=== PATIENT | female | born 1985 | race African-American/Black ===

== ENCOUNTER 2020-08-07 05:40 | Inpatient (IN) ==
[~2020-08-07 05:40] MED LIST: LACTATED RINGER'S 1,000 ML IV SCH
[2020-08-07] MEDS ORDERED: ceFAZolin 2000MG 2,000 MG/15 ML SYR IV SCH (06:00)
[2020-08-07] MEDS ORDERED: CITRIC ACID/SODIUM CITRATE 15 ML UDC PO SCH (06:00)
[2020-08-07 06:53] LABS: Basophils # (auto) 0.01 K/uL (0-0.2); Basophils % (auto) 0.2 %; Eosinophils # (auto) 0.03 K/uL (0-0.5); Eosinophils % (auto) 0.6 %; Hematocrit (blood only) 30.4 % (37-47); Immature Granulocytes # (auto) 0.01 K/uL (0.00-0.02); Immature Granulocytes % (auto) 0.2 %; Lymphocytes # (auto) 1.29 K/uL (1.2-3.4); Lymphocytes % (auto) 26.3 %; Mean Corpuscular Hemoglobin 28.3 pg (25-34); Mean Corpuscular Hgb Conc 32.9 g/dL (32-36); Mean Corpuscular Volume 86.1 fL (80-100); Mean Platelet Volume 11.8 fL (7.4-10.4); Monocytes # (auto) 0.35 K/uL (0.11-0.59); Monocytes % (auto) 7.1 %; Neutrophils # (auto) 3.22 K/uL (1.4-6.5); Neutrophils % (auto) 65.6 %; Platelet Count 143 K/uL (130-400); RDW Coefficient of Variation 14.4 % (11.5-14.5); RDW Standard Deviation 44.4 fL (36.4-46.3); Red Blood Count 3.53 M/uL (4.2-5.4); White Blood Count 4.91 K/uL (4.8-10.8)
[2020-08-07] MEDS ORDERED: MoRPHine SULFATE PF 1 MG/ML 10 ML AMP/VIAL ONE (06:53)
[2020-08-07] MEDS ORDERED: fentaNYL citrate 100 MCG/2 ML VIAL ONE ×3 (06:53→09:15)
[2020-08-07] MEDS ORDERED: OXYTOCIN 10 UNITS/ML VIAL ONE (06:53)
--- NOTE | 2020-08-07 07:10 | Anesthesiology Consultation ---
Date of Service August 07, 2020 Assessment & Plan ASA ASA2 Proposed Anesthesia Anesthesia Type: Spinal Risk / Benefits Reviewed With: PT / POA / Parent / Guardian, Accepts Plan and Informed Consent Obtained History Surgery Operation Date: 08/07/20 07:30 Proposed Procedures p Section in LD - Lio Craft MD Height/Weight Height: 5 ft 7 in Weight: 74.389 kg Allergies Allergy/AdvReac Type Severity Reaction Status Date / Time No Known Allergies Allergy Verified 08/02/20 08:58 Medications Home Medications Medication Instructions Recorded Confirmed Last Taken iron,carbonyl-vitamin C [Vitron-C] 1 tab PO HS 08/02/20 08/07/20 08/06/20 23:30 prenat.vits,shahid,uiq-sqfn-rxthg 1 tab PO HS 08/02/20 08/07/20 08/06/20 23:30 [ Vitamin] NPO Date Last Intake of Fluids: 08/06/20 Time Last Intake of Fluids: 23:30 Date Last Intake of Solids: 08/06/20 Time Last Intake of Solids: 19:00 Past Medical History Medical History Anemia Exercise / Class Metabolic Activity II 4-5 Yardwork/Stairs/Walk up hill Past Family History Family History Other No family history of adverse response to anesthesia Past Surgical History Surgical History H/O wisdom tooth extraction History of dilatation and curettage History of gynecologic surgery remove scar tissue after D/C History of myomectomy Past Anesthesia History No Hx of Anesthesia Complications and No Family Hx of Anesthesia Complications History of PONV No Hx of PONV and No Hx of Motion Sickness Social History Smoking Status: Never smoker Do You Dip or Chew Tobacco: No Hx Alcohol Use: No (none since ) Hx Substance Use: No substance use type: does not use Review of Systems denies fever/cough/ colds/ chest pain/ SOB/ HUSSAIN denies HUSSAIN Physical Exam Vital Signs Last Vital Signs Temp 36.8 C 08/07/20 06:17 Pulse 96 H 08/07/20 05:54 Resp 18 08/07/20 06:17 BP 97/60 L 08/07/20 05:54 ENMT Mouth: no TMJ abnormality and no dentition abnormality Thyromental Distance: > or= 3.5 Finger Breadths Mallampati Class: II Neck neck extension not limited Respiratory normal respiratory effort; no respiratory distress Auscultation: lungs clear to auscultation bilaterally Cardiovascular Rate/Rhythm: regular rate and regular rhythm Neurologic moves all extremities Psychiatric Orientation: alert and oriented x 3 Testing Laboratory Results 08/07/20 05:53
[2020-08-07] MEDS ORDERED: PROMETHAZINE HCL 25 MG in SODIUM CHLORIDE 0.9% 50 ML IV PRN ×2 (07:28→09:50)
[2020-08-07] MEDS ORDERED: NALOXONE HCL 0.4 MG/1 ML VIAL/CARP IV PRN (07:28)
[2020-08-07] MEDS ORDERED: ePHEDrine sulfate 50 MG/ML AMP IV PRN (07:28)
[2020-08-07] MEDS ORDERED: LACTATED RINGER'S 500 ML IV PRN (07:28)
[2020-08-07] MEDS ORDERED: MoRPHine SULFATE PF 1 MG/ML 10 ML AMP/VIAL INT SPINAL ONE (07:28)
[2020-08-07] MEDS ORDERED: diphenhydrAMINE 50 MG/ML VIAL IV PRN (07:28)
[2020-08-07] MEDS ORDERED: NALOXONE HCL 0.08 MG in SYRINGE 1.8 ML IV PRN (07:28)
[2020-08-07] MEDS ORDERED: ONDANSETRON INJ 2 MG/ML 2 ML VIAL IV PRN (07:28)
[2020-08-07] MEDS ORDERED: MoRPHine SULFATE 2 MG/ML CARP IV PRN (07:28)
[2020-08-07] MEDS ORDERED: NALOXONE HCL 1 MG in SODIUM CHLORIDE 0.9% 1000ML 1,000 ML IV PRN (07:28)
[2020-08-07] MEDS ORDERED: NO NARCOTICS OR SEDATIVES SCH (07:30)
[2020-08-07] MEDS ORDERED: SODIUM CHLORIDE 0.9% 1000ML 1,000 ML IV SCH (07:30)
[2020-08-07] MEDS ORDERED: DC INTRASPINAL MORPHINE SCH (07:30)
--- NOTE | 2020-08-07 07:41 | History & Physical Bridge Note ---
Date of Service August 07, 2020 History & Physical Bridge Note I have examined the patient, reviewed the History & Physical and in the interval since the performance of the History & Physical I have noted the following changes of clinical significance: no changes noted
[2020-08-07] MEDS ORDERED: ePHEDrine sulfate 50 MG/ML SYR ONE (08:38)
[2020-08-07] MEDS ORDERED: OXYTOCIN 10 UNITS/ML VIAL IM ONE (08:54)
[2020-08-07] MEDS ORDERED: miSOPROStoL 200 MCG TAB ONE (09:17)
[2020-08-07 09:19] LABS: Base Excess Cord Arterial Bld -5.5 mEq/L (-9-1.8); CO2 Cord Arterial Blood 62 mmHg (39.1-73.5); HCO3 Cord Arterial Blood 23 mmol/L (19.7-28.5); PO2 Cord Arterial Blood 19 mmHg (4.1-31.7); pH Cord Arterial Blood 7.19 (7.1-7.38)
[2020-08-07] MEDS ORDERED: miSOPROStoL 200 MCG TAB PR ONE (09:19)
[2020-08-07 09:24] LABS: Base Excess Cord Venous Blood -4.4 mEq/L (-7.7-1.9); Cord Venous Blood HCO3 21 mmol/L (18.4-26.8); Cord Venous Blood PCO2 38 mmHg (30.4-57.2); Cord Venous Blood PO2 29 mmHg (14.1-43.3); Cord Venous Blood pH 7.36 (7.20-7.44)
[2020-08-07 09:26] LABS: Oxygen Sat Cord Arterial Blood < 60.0 % (<60)
[2020-08-07] MEDS ORDERED: HYDROCORTISONE ACETATE 25 MG SUPP PR PRN (09:50)
[2020-08-07] MEDS ORDERED: MAGNESIUM HYDROXIDE SUSP 30 ML UDC PO PRN (09:50)
[2020-08-07] MEDS ORDERED: BENZOCAINE 20% AER SPR 82.5 GM CAN EXT PRN (09:50)
[2020-08-07] MEDS ORDERED: SENNA 8.6 MG TAB PO PRN (09:50)
[2020-08-07] MEDS ORDERED: SUPERCREAM 0.870% 15 GM JAR EXT PRN (09:50)
[2020-08-07] MEDS ORDERED: LACTATED RINGER'S 1,000 ML IV SCH (10:00)
--- NOTE | 2020-08-07 10:06 | Post Operative Brief Note ---
Immediate Post Op Note v1 Date of Surgery August 07, 2020 Pre & Post Diagnosis Operation Date: 08/07/20 07:30 Pre-Op Diagnosis: s/p Myomectomy, C SECTION Post-Op Diagnosis: Same; Delivery of a live female child at 0843 I identified the patient and participated in the time-out.: Yes Procedure Operation Date: 08/07/20 07:30 Actual Procedures p Section in LD - Lio Craft MD Surgeon Lio Craft MD Spray Dyer lashell marquez Estimated Blood Loss 1,500 Findings Consistent with Post-Op Diagnosis Drains Quintanilla Catheter
--- NOTE | 2020-08-07 10:27 | Operative Report (OR) ---
DATE OF OPERATION: 08/07/2020 INDICATION FOR SURGERY: This is a 34-year-old status post myomectomy, at term, scheduled for section. PREOPERATIVE DIAGNOSES: 1. at term. 2. Status post myomectomy. SURGEON: Lio Craft MD. APARTMENT MAINTENANCE SUPERVISOR: Nasrin Adkins. ANESTHESIA: Spinal. ESTIMATED BLOOD LOSS: 1500 mL. URINE OUTPUT: 200 mL. INTRAVENOUS FLUIDS: 2000 mL. FINDINGS: Live infant in cephalic presentation. Weight and Apgars in the pediatric record. Uterus, adnexa appeared grossly normal. COMPLICATIONS: None. DRAINS: Quintanilla catheter. DISPOSITION: Recovery room. PATHOLOGY: Placenta, cord blood and cord gas. DESCRIPTION OF PROCEDURE: The patient was taken to the operating room where she was prepped and draped in normal sterile fashion. Timeout was called. A Pfannenstiel incision was made and carried down to the fascia with a scalpel. Fascia was incised in the midline and extended laterally on both sides with the Echeverria scissors. The rectus abdominus was sharply dissected off the fascia. Peritoneum was identified and entered sharply. Once inside the abdomen, an Noe retractor was placed for retraction. Vesicouterine peritoneum was identified. Lower segment of the uterus was identified as well. Because the infant's head was not in the pelvis, the patient had not labored at all as expected. Incision was made above the vesicouterine peritoneum and extended laterally on both sides using bandage scissors. Infant's head was delivered. Mouth was suctioned, cord was clamped and cut, and the was handed over to the pediatric team. Weight and Apgars are in the pediatric record. Uterus was closed in 2 layers with Vicryl suture. Good hemostasis was obtained. Copious amount of irrigation used to irrigate the abdomen. The patient was extremely uncomfortable during manipulation of the uterus and the bowel. Decision was therefore made not to exteriorize the uterus as I usually do; however, copious amount of irrigation was used to irrigate the abdomen, and the incision site appeared to have good hemostasis. The Noe retractor was removed. The peritoneum was approximated using plain suture. The fascia was closed in a running fashion using Vicryl stitch. SubQ was approximated using plain suture and skin was closed with taj. All instruments were removed from the abdomen and accounted for x2 including sponges, needles and retractors. Baby and mother are doing well in recovery. I attest to the content of the Intraoperative Record and any orders documented therein. Any exception s are noted below.
[2020-08-07] MEDS: OXYTOCIN 20 UNITS in LACTATED RINGER'S 1,000 ML IV SCH ×2 (10:39→18:31)
--- NOTE | 2020-08-07 10:52 | Anesthesiology Progress Note ---
Date of Service August 07, 2020 Anesthesia Post Procedure Vital Signs Vital Signs: Temp Pulse Resp BP Pulse Ox 08/07/20 10:49 81 100 08/07/20 10:44 79 100 08/07/20 10:39 74 100 08/07/20 10:34 69 100 08/07/20 10:29 75 100 08/07/20 10:28 78 90 08/07/20 10:24 71 100 08/07/20 10:19 65 100 08/07/20 10:15 62 103/60 08/07/20 10:14 62 18 100 08/07/20 10:09 64 100 08/07/20 10:04 65 18 106/66 100 08/07/20 09:59 73 96 08/07/20 09:54 62 18 106/62 99 08/07/20 09:49 62 100 08/07/20 09:44 72 18 100 08/07/20 09:39 66 100 08/07/20 09:36 68 94 08/07/20 09:34 36.4 C L 69 16 104/57 L 99 08/07/20 06:17 36.8 C 18 08/07/20 05:54 96 H 97/60 L 08/07/20 05:53 36.8 C 20 Pain Intensity Abdomen: Pain Intensity: 5 Transfer of Care Handoff Completed per policy Notes Mental Status: alert / awake / arousable and participated in evaluation Patient Amnestic to Procedure: Yes Nausea / Vomiting: adequately controlled Pain: adequately controlled Airway Patency, RR, SpO2: stable & adequate BP & HR: stable & adequate Hydration State: stable & adequate Anesthetic Complications: no major complications apparent and Pt Satisfied with anesthetic care
[2020-08-07] MEDS: KETOROLAC 30 MG/ML VIAL IV PRN ×2 (12:07→21:20)
[2020-08-07] MEDS: SIMETHICONE 80 MG CHEW PO SCH ×3 (12:07→21:16)
[2020-08-07 15:01] LABS: Hematocrit (blood only) 27.8 % (37-47); Hemoglobin 9.2 g/dL (12.0-16.0)
[2020-08-07] MEDS: DOCUSATE SODIUM 100 MG CAP PO SCH (21:16)
[2020-08-08] MEDS ORDERED: ONDANSETRON INJ 2 MG/ML 2 ML VIAL IV PRN (01:28)
[2020-08-08] MEDS ORDERED: diphenhydrAMINE 50 MG/ML VIAL IV PRN (01:28)
[2020-08-08] MEDS ORDERED: diphenhydrAMINE Capsule 25 MG CAP PO PRN (01:29)
[2020-08-08] MEDS: IBUPROFEN 600 MG TAB PO PRN ×4 (02:18→20:54)
[2020-08-08] MEDS: oxyCODONE/ACETAMINOPHEN 5mg/325mg TAB PO PRN ×4 (02:19→20:55)
[2020-08-08 07:06] LABS: Basophils # (auto) 0.01 K/uL (0-0.2); Basophils % (auto) 0.1 %; Eosinophils # (auto) 0.01 K/uL (0-0.5); Eosinophils % (auto) 0.1 %; Hematocrit (blood only) 28.9 % (37-47); Hemoglobin 9.5 g/dL (12.0-16.0); Immature Granulocytes # (auto) 0.03 K/uL (0.00-0.02); Immature Granulocytes % (auto) 0.2 %; Lymphocytes # (auto) 0.81 K/uL (1.2-3.4); Lymphocytes % (auto) 6.6 %; Mean Corpuscular Hemoglobin 28.3 pg (25-34); Mean Corpuscular Hgb Conc 32.9 g/dL (32-36); Mean Platelet Volume 11.3 fL (7.4-10.4); Neutrophils # (auto) 10.28 K/uL (1.4-6.5); Platelet Count 154 K/uL (130-400); RDW Coefficient of Variation 14.1 % (11.5-14.5); RDW Standard Deviation 43.3 fL (36.4-46.3); Red Blood Count 3.36 M/uL (4.2-5.4); White Blood Count 12.24 K/uL (4.8-10.8)
[2020-08-08] MEDS: FERROUS SULFATE 325 MG TAB PO SCH (08:55)
[2020-08-08] MEDS: SIMETHICONE 80 MG CHEW PO SCH ×4 (08:55→20:56)
[2020-08-08] MEDS: DOCUSATE SODIUM 100 MG CAP PO SCH ×2 (08:55→20:56)
[2020-08-08] MEDS: PRENATAL VITAMIN 1 TAB PO SCH (08:55)
[2020-08-08] MEDS ORDERED: DIPHTHERIA/TETANUS/PERTUSSIS 0.5 ML SYR/VIAL IM ONE (09:00)
--- NOTE | 2020-08-08 09:11 | Anesthesiology Progress Note ---
Date of Service August 08, 2020 Anesthesia Post Procedure Vital Signs Vital Signs: Temp Pulse Pulse Resp BP BP Pulse Ox 08/08/20 04:00 36.7 C 70 18 117/72 99 08/08/20 02:00 18 99 08/08/20 00:30 18 98 08/07/20 23:30 36.7 C 77 18 111/70 99 08/07/20 22:00 18 99 08/07/20 20:30 37.0 C 78 18 106/67 08/07/20 19:30 18 96 08/07/20 18:15 18 100 08/07/20 17:15 18 100 08/07/20 16:15 18 100 08/07/20 15:50 36.7 C 82 18 106/63 08/07/20 15:15 18 100 08/07/20 14:15 78 18 103/66 98 08/07/20 13:15 75 18 113/51 L 100 08/07/20 12:15 36.7 C 72 18 105/65 100 08/07/20 11:37 75 109/51 L 08/07/20 11:34 78 18 100 08/07/20 11:33 72 92 08/07/20 11:29 70 100 08/07/20 11:24 72 91 08/07/20 11:19 71 100 08/07/20 11:15 75 149/67 H 08/07/20 11:14 73 100 08/07/20 11:09 74 100 08/07/20 11:05 73 115/54 L 08/07/20 11:04 72 18 100 08/07/20 11:03 68 90 08/07/20 10:59 73 100 08/07/20 10:56 80 91 08/07/20 10:54 74 100 08/07/20 10:49 81 100 08/07/20 10:44 79 100 08/07/20 10:39 74 100 08/07/20 10:34 69 18 100 08/07/20 10:29 75 100 08/07/20 10:28 78 90 08/07/20 10:24 71 18 100 08/07/20 10:19 65 100 08/07/20 10:15 62 103/60 08/07/20 10:14 62 18 100 08/07/20 10:09 64 100 08/07/20 10:04 65 18 106/66 100 08/07/20 09:59 73 96 08/07/20 09:54 62 18 106/62 99 08/07/20 09:49 62 100 08/07/20 09:44 72 18 100 08/07/20 09:39 66 100 08/07/20 09:36 68 94 08/07/20 09:34 36.4 C L 69 16 104/57 L 99 Pain Intensity Abdomen: Pain Intensity: 3 Transfer of Care Handoff Completed per policy Notes Mental Status: alert / awake / arousable and participated in evaluation Nausea / Vomiting: adequately controlled Pain: adequately controlled Airway Patency, RR, SpO2: stable & adequate BP & HR: stable & adequate Hydration State: stable & adequate Neuraxial Anesthesia: was administered and sensory block resolved Anesthetic Complications: no major complications apparent and Pt Satisfied with anesthetic care Notes: Patient denies headache this morning. Has been up walking without weakness or residual numbness. Patient encouraged to contact anesthesia for any concerns or new headache
--- NOTE | 2020-08-08 09:43 | Obstetrical Progress Note ---
Date of Service August 08, 2020 Assessment & Plan Admission and Anticipated Discharge Date Admission Date: August 07, 2020 Physical Exam Physical Exam: abdomen soft and non tender incision is clean and dry passing flatus no calf tenderness ambulating well vaginal bleeding scant hgb 9.4 Results & Data ([facility]) Vital Signs (Past 12 Hours) Vital Signs Temp Pulse Resp BP Pulse Ox 08/08/20 04:00 36.7 C 70 18 117/72 99 08/08/20 02:00 18 99 08/08/20 00:30 18 98 08/07/20 23:30 36.7 C 77 18 111/70 99 08/07/20 22:00 18 99
[2020-08-08] MEDS ORDERED: bisacodyL 5 MG TABEC PO SCH (20:00)
[2020-08-09] MEDS: IBUPROFEN 600 MG TAB PO PRN ×5 (01:31→23:23)
[2020-08-09] MEDS: oxyCODONE/ACETAMINOPHEN 5mg/325mg TAB PO PRN ×5 (01:31→23:22)
[2020-08-09 07:29] LABS: Hematocrit (blood only) 23.2 % (37-47); Hemoglobin 7.4 g/dL (12.0-16.0)
[2020-08-09] MEDS: SIMETHICONE 80 MG CHEW PO SCH ×4 (08:30→21:14)
[2020-08-09] MEDS: PRENATAL VITAMIN 1 TAB PO SCH (08:30)
[2020-08-09] MEDS: FERROUS SULFATE 325 MG TAB PO SCH (08:30)
[2020-08-09] MEDS: DOCUSATE SODIUM 100 MG CAP PO SCH ×2 (08:30→21:14)
[2020-08-09] MEDS ORDERED: bisacodyL 10 MG SUPP PR PRN (09:50)
--- NOTE | 2020-08-09 10:40 | Obstetrical Progress Note ---
Date of Service August 09, 2020 Assessment & Plan (1) delivery delivered: POD #2 pt doing well No complaints HGB 7.4 - repeat at noon Asymptomatic , on Iron Anticipate disch AM Subjective Ambulation: ambulating normally Voiding: no voiding problems Passing Gas:: Yes Diet Tolerance:: clear liquids Lochia:: Small Feeding Type:: breast feeding Review of Systems All systems reviewed & are unremarkable except as noted in HPI & below Physical Exam Constitutional WD/WN, vitals as above well developed and well nourished Eyes PERRL, conjunctivae normal, anicteric sclerae ENMT external ear and nose normal, oropharynx normal Neck trachea midline, no thyromegaly Respiratory normal respiratory effort, lungs clear to auscultation Cardiovascular RRR, no murmur, no edema Chest (Breasts) normal inspection/palpation of breasts Gastrointestinal (Abdomen) normal bowel sounds, soft, nontender, no hepatosplenomegaly Musculoskeletal no cyanosis or clubbing, extremities motor strength 5/5 Skin no rashes, warm and dry + incision (Clean,dry and intact) Neurologic patellar DTR's 2+ bilat, sensation intact Psychiatric A+Ox3, euthymic affect Genitourinary normal external appearance Lymphatic no cervical or axillary lymphadenopathy Results & Data ([facility]) Vital Signs (Past 12 Hours) Vital Signs Temp Pulse Resp BP Pulse Ox 08/09/20 08:00 36.6 C 83 18 101/67 99 08/09/20 00:35 36.5 C 73 16 111/60 97
[2020-08-09 13:08] LABS: Hematocrit (blood only) 24.5 % (37-47)
[2020-08-09] MEDS ORDERED: Nursing to Pharmacy Communication SCH (22:00)
[2020-08-10] MEDS: oxyCODONE/ACETAMINOPHEN 5mg/325mg TAB PO PRN ×2 (00:23→08:57)
--- NOTE | 2020-08-10 07:58 | Obstetrical Progress Note ---
Date of Service August 10, 2020 Assessment & Plan Admission and Anticipated Discharge Date Admission Date: August 07, 2020 Subjective Patient is seen and examined. She feels well, no complaints. Desires d/c Pain is under control with oral meds. Ambulating without dizziness. Voiding without difficulty Tolerating regular diet with out N&V Flatus + BM + Bleeding is minimal No fever/ chills/ CP/ SOB/ N&V/ Leg pain Breast feeding without problems Vital Signs Temp Pulse Resp BP Pulse Ox 08/10/20 00:15 36.4 C L 80 16 110/70 08/09/20 16:00 36.4 C L 84 18 97/64 L 99 08/09/20 08:00 36.6 C 83 18 101/67 99 Lab Results 08/07/20 08/07/20 08/07/20 Range/Units 05:53 05:53 08:43 WBC 4.91 (4.8-10.8) K/uL RBC 3.53 L (4.2-5.4) M/uL Hgb 10.0 L (12.0-16.0) g/dL Hct 30.4 L (37-47) % MCV 86.1 (80-100) fL MCH 28.3 (25-34) pg MCHC 32.9 (32-36) g/dL RDW Std Deviation 44.4 (36.4-46.3) fL RDW Coeff of Belinda 14.4 (11.5-14.5) % Plt Count 143 (130-400) K/uL MPV 11.8 H (7.4-10.4) fL Immature Gran % (Auto) 0.2 % Neut % (Auto) 65.6 % Lymph % (Auto) 26.3 % [place] % (Auto) 7.1 % Eos % (Auto) 0.6 % Baso % (Auto) 0.2 % Neut # (Auto) 3.22 (1.4-6.5) K/uL Lymph # (Auto) 1.29 (1.2-3.4) K/uL [place] # (Auto) 0.35 (0.11-0.59) K/uL Eos # (Auto) 0.03 (0-0.5) K/uL Baso # (Auto) 0.01 (0-0.2) K/uL Immature Gran # (Auto) 0.01 (0.00-0.02) K/uL Cord ABG pH 7.19 (7.1-7.38) Cord ABG pCO2 62 (39.1-73.5) mmHg Cord ABG pO2 19 (4.1-31.7) mmHg Cord ABG HCO3 23 (19.7-28.5) mmol/L Cord ABG Base Excess -5.5 (-9-1.8) mEq/L Cord ABG O2 Sat < 60.0 (<60) % Cord VBG pH (7.20-7.44) Cord VBG pCO2 (30.4-57.2) mmHg Cord VBG pO2 (14.1-43.3) mmHg Cord VBG HCO3 (18.4-26.8) mmol/L Cord VBG Base Excess (-7.7-1.9) mEq/L Cord VBG O2 Sat (<68) % Barometric Pressure 730.5 mm/Hg Blood Gas Comments SANTANA Blood Type O Positive Antibody Screen NEGATIVE 08/07/20 08/07/20 08/08/20 Range/Units 08:43 14:48 06:29 WBC 12.24 H (4.8-10.8) K/uL RBC 3.36 L (4.2-5.4) M/uL Hgb 9.2 L 9.5 L (12.0-16.0) g/dL Hct 27.8 L 28.9 L (37-47) % MCV 86.0 (80-100) fL MCH 28.3 (25-34) pg MCHC 32.9 (32-36) g/dL RDW Std Deviation 43.3 (36.4-46.3) fL RDW Coeff of Belinda 14.1 (11.5-14.5) % Plt Count 154 (130-400) K/uL MPV 11.3 H (7.4-10.4) fL Immature Gran % (Auto) 0.2 % Neut % (Auto) 84.0 % Lymph % (Auto) 6.6 % [place] % (Auto) 9.0 % Eos % (Auto) 0.1 % Baso % (Auto) 0.1 % Neut # (Auto) 10.28 H (1.4-6.5) K/uL Lymph # (Auto) 0.81 L (1.2-3.4) K/uL [place] # (Auto) 1.10 H (0.11-0.59) K/uL Eos # (Auto) 0.01 (0-0.5) K/uL Baso # (Auto) 0.01 (0-0.2) K/uL Immature Gran # (Auto) 0.03 H (0.00-0.02) K/uL Cord ABG pH (7.1-7.38) Cord ABG pCO2 (39.1-73.5) mmHg Cord ABG pO2 (4.1-31.7) mmHg Cord ABG HCO3 (19.7-28.5) mmol/L Cord ABG Base Excess (-9-1.8) mEq/L Cord ABG O2 Sat (<60) % Cord VBG pH 7.36 (7.20-7.44) Cord VBG pCO2 38 (30.4-57.2) mmHg Cord VBG pO2 29 (14.1-43.3) mmHg Cord VBG HCO3 21 (18.4-26.8) mmol/L Cord VBG Base Excess -4.4 (-7.7-1.9) mEq/L Cord VBG O2 Sat 63.0 (<68) % Barometric Pressure 730.6 mm/Hg Blood Gas Comments SANTANA Blood Type Antibody Screen 08/09/20 08/09/20 Range/Units 06:50 12:46 WBC (4.8-10.8) K/uL RBC (4.2-5.4) M/uL Hgb 7.4 L 8.0 L (12.0-16.0) g/dL Hct 23.2 L 24.5 L (37-47) % MCV (80-100) fL MCH (25-34) pg MCHC (32-36) g/dL RDW Std Deviation (36.4-46.3) fL RDW Coeff of Belinda (11.5-14.5) % Plt Count (130-400) K/uL MPV (7.4-10.4) fL Immature Gran % (Auto) % Neut % (Auto) % Lymph % (Auto) % [place] % (Auto) % Eos % (Auto) % Baso % (Auto) % Neut # (Auto) (1.4-6.5) K/uL Lymph # (Auto) (1.2-3.4) K/uL [place] # (Auto) (0.11-0.59) K/uL Eos # (Auto) (0-0.5) K/uL Baso # (Auto) (0-0.2) K/uL Immature Gran # (Auto) (0.00-0.02) K/uL Cord ABG pH (7.1-7.38) Cord ABG pCO2 (39.1-73.5) mmHg Cord ABG pO2 (4.1-31.7) mmHg Cord ABG HCO3 (19.7-28.5) mmol/L Cord ABG Base Excess (-9-1.8) mEq/L Cord ABG O2 Sat (<60) % Cord VBG pH (7.20-7.44) Cord VBG pCO2 (30.4-57.2) mmHg Cord VBG pO2 (14.1-43.3) mmHg Cord VBG HCO3 (18.4-26.8) mmol/L Cord VBG Base Excess (-7.7-1.9) mEq/L Cord VBG O2 Sat (<68) % Barometric Pressure mm/Hg Blood Gas Comments Blood Type Antibody Screen PE: General: Alert, orientedx3, NAD CVS: S1S2 RRR Lungs; CTAB Abd: soft, NT, ND, BS+, fundus firm, below Umbilicus Incision: Clean, dry, intact Perineum intact, Lochia rubra minimal Ext; NT, no edema AP: 34 yo s/p C Section, pod# 2 VSS Afebrile doing well Continue routine postop care Encourage ambulation, PO intake All questions were answered Discussed when to call D/C home , f/u in office Results & Data ([facility]) Vital Signs (Past 12 Hours) Vital Signs Temp Pulse Resp BP 08/10/20 00:15 36.4 C L 80 16 110/70
[2020-08-10 08:21] LABS: Eosinophils # (auto) 0.08 K/uL (0-0.5); Eosinophils % (auto) 1.3 %; Hematocrit (blood only) 24.6 % (37-47); Hemoglobin 8.1 g/dL (12.0-16.0); Immature Granulocytes # (auto) 0.01 K/uL (0.00-0.02); Immature Granulocytes % (auto) 0.2 %; Lymphocytes # (auto) 0.91 K/uL (1.2-3.4); Lymphocytes % (auto) 15.2 %; Mean Corpuscular Hemoglobin 28.3 pg (25-34); Mean Corpuscular Hgb Conc 32.9 g/dL (32-36); Mean Platelet Volume 10.8 fL (7.4-10.4); Monocytes # (auto) 0.45 K/uL (0.11-0.59); Monocytes % (auto) 7.5 %; Neutrophils # (auto) 4.53 K/uL (1.4-6.5); Neutrophils % (auto) 75.8 %; Platelet Count 157 K/uL (130-400); RDW Coefficient of Variation 14.5 % (11.5-14.5); RDW Standard Deviation 44.9 fL (36.4-46.3); Red Blood Count 2.86 M/uL (4.2-5.4); White Blood Count 5.98 K/uL (4.8-10.8)
[2020-08-10] MEDS: SIMETHICONE 80 MG CHEW PO SCH (08:57)
[2020-08-10] MEDS: FERROUS SULFATE 325 MG TAB PO SCH (08:57)
[2020-08-10] MEDS: PRENATAL VITAMIN 1 TAB PO SCH (08:57)
[2020-08-10] MEDS: DOCUSATE SODIUM 100 MG CAP PO SCH (08:57)
[2020-08-10] MEDS: IBUPROFEN 600 MG TAB PO PRN (08:58)
== END 2020-08-10 13:25 | disposition home or self-care (01) | DRG 788 ==
LOC: 4S1 05:40 → EDSTATUS 07:30 → 4S2 11:52

== ENCOUNTER 2022-07-08 07:08 | Inpatient (IN) ==
--- NOTE | 2022-07-01 10:07 | Anesthesiology Consultation ---
Date of Service July 01, 2022 Assessment & Plan (1) Encounter for pre-operative examination: - COVID screening: Per assessment on 07/01: No known COVID-19 positive contacts or current COVID-19 related symptoms. Travel screen negative. Patient vaccinated. At surgeon discretion if preop Covid testing being done. - Hx anesthesia issue: Pt reports "not being completely numb during last c- section.. very painful" > Primary (08/07/20): SAB at L3-4 at [facility] Chart Review Chart Review: order entry administrator initiated History Surgery Operation Date: 07/08/22 08:50 Proposed Procedures p Section in LD - Antonio Johnston MD Height/Weight Height: 5 ft 7 in Weight: 78.018 kg Allergies Allergy/AdvReac Type Severity Reaction Status Date / Time No Known Allergies Allergy Verified 07/01/22 09:33 Medications Home Medications Medication Instructions Recorded Confirmed Last Taken prenat.vits,shahid,[id number]-gmfw-[id number] 1 tab PO HS 08/02/20 07/01/22 08/06/20 23:30 Past Medical History Medical History (Updated 07/01/22 @ 10:04 by Radha Leone) Anemia Past Family History Family History Other No family history of adverse response to anesthesia Past Surgical History Surgical History (Updated 07/01/22 @ 10:05 by Radha Leone) H/O wisdom tooth extraction History of anesthesia reaction Pt reports "not being completely numb during last .. very painful" History of History of dilatation and curettage History of gynecologic surgery remove scar tissue after D/C History of myomectomy Social History Smoking Status: Never smoker Do You Dip or Chew Tobacco: No Hx Alcohol Use: No (none since ) Hx Substance Use: No substance use type: does not use
--- NOTE | 2022-07-08 07:25 | History & Physical Bridge Note ---
Date of Service July 08, 2022 History & Physical Bridge Note I have examined the patient, reviewed the History & Physical and in the interval since the performance of the History & Physical I have noted the following changes of clinical significance: no changes noted
[2022-07-08] MEDS: LACTATED RINGER'S 1,000 ML IV PRN ×2 (07:50→10:04)
[2022-07-08] MEDS ORDERED: ceFAZolin 2000MG 2,000 MG/15 ML SYR IV STA (07:52)
[2022-07-08] MEDS ORDERED: LIDOCAINE 1% LOCAL 20 ML VIAL INFIL PRN (07:52)
[2022-07-08] MEDS ORDERED: OXYTOCIN 30 UNITS/500 ML BAG IV PRN (07:52)
[2022-07-08 08:29] LABS: Hematocrit (blood only) 29.3 % (34.1-44.9); Hemoglobin 9.8 g/dl (12.0-16.0); Mean Corpuscular Hemoglobin 27.8 pg (25.0-34.0); Mean Corpuscular Hgb Conc 33.4 g/dL (32.0-36.0); Platelet Count 132 K/uL (130-400); RDW Coefficient of Variation 16.1 % (11.5-14.5); RDW Standard Deviation 48.7 fL (36.4-46.3); Red Blood Count 3.53 M/uL (3.93-5.22); White Blood Count 4.75 K/ul (4.8-10.8)
[2022-07-08] MEDS ORDERED: SODIUM CHLORIDE 0.9% 250 ML IV PRN (08:37)
[2022-07-08] MEDS ORDERED: CITRIC ACID/SODIUM CITRATE 15 ML UDC PO SCH (08:45)
[2022-07-08] MEDS ORDERED: OXYTOCIN 10 UNITS/ML VIAL ONE (10:05)
[2022-07-08] MEDS ORDERED: MoRPHine SULFATE PF 1 MG/ML 10 ML AMP/VIAL ONE (10:08)
[2022-07-08] MEDS ORDERED: HYDROmorphone INJ 0.5 MG/0.5 ML SYR IV PRN (10:14)
[2022-07-08] MEDS ORDERED: NALBUPHINE HCL INJ 10 MG/ML AMP IV PRN (10:14)
[2022-07-08] MEDS ORDERED: ATROPINE SULFATE 0.1 MG/ML 10ML SYR IV PRN (10:14)
[2022-07-08] MEDS ORDERED: NALOXONE HCL 0.08 MG in SYRINGE 1.8 ML IV PRN (10:14)
[2022-07-08] MEDS ORDERED: MoRPHine SULFATE 2 MG/ML CARP IV PRN (10:14)
[2022-07-08] MEDS ORDERED: LACTATED RINGER'S 500 ML IV PRN (10:14)
[2022-07-08] MEDS ORDERED: MEPERIDINE HCL 25 MG/ML CARP/VIAL IV PRN (10:14)
[2022-07-08] MEDS ORDERED: NALOXONE HCL 0.4 MG/1 ML VIAL/CARP IV PRN (10:14)
[2022-07-08] MEDS ORDERED: diphenhydrAMINE 50 MG/ML VIAL IV PRN (10:14)
[2022-07-08] MEDS ORDERED: MoRPHine SULFATE PF 1 MG/ML 10 ML AMP/VIAL INT SPINAL ONE (10:14)
[2022-07-08] MEDS ORDERED: NALOXONE HCL 1 MG in SODIUM CHLORIDE 0.9% 1000ML 1,000 ML IV PRN (10:14)
[2022-07-08] MEDS ORDERED: ePHEDrine sulfate 50 MG/ML AMP IV PRN ×2 (10:14)
[2022-07-08] MEDS ORDERED: SODIUM CHLORIDE 0.9% 1000ML 1,000 ML IV SCH (10:15)
[2022-07-08] MEDS ORDERED: DC INTRASPINAL MORPHINE SCH (10:15)
[2022-07-08] MEDS ORDERED: NO NARCOTICS OR SEDATIVES SCH (10:15)
[2022-07-08] MEDS ORDERED: ePHEDrine sulfate 50 MG/ML SYR ONE (10:57)
[2022-07-08] MEDS ORDERED: OXYTOCIN 10 UNITS/ML 10ML VIAL ONE (10:58)
[2022-07-08] MEDS ORDERED: PHENYLEPHRINE 100MCG/ML 5ML SYR ONE (10:58)
[2022-07-08] MEDS ORDERED: LACTATED RINGER'S 1,000 ML IV SCH (11:45)
[2022-07-08] MEDS ORDERED: HYDROCORTISONE ACETATE 25 MG SUPP PR PRN (11:45)
[2022-07-08] MEDS ORDERED: BENZOCAINE 20% AER SPR 82.5 GM CAN EXT PRN (11:45)
[2022-07-08] MEDS ORDERED: SENNA 8.6 MG TAB PO PRN (11:45)
[2022-07-08] MEDS ORDERED: diphenhydrAMINE Capsule 25 MG CAP PO PRN (11:45)
[2022-07-08] MEDS ORDERED: oxyCODONE/ACETAMINOPHEN 5mg/325mg TAB PO PRN (11:45)
[2022-07-08] MEDS ORDERED: PROMETHAZINE HCL 25 MG in SODIUM CHLORIDE 0.9% 50 ML IV PRN (11:45)
[2022-07-08] MEDS ORDERED: DIPHTHERIA/TETANUS/PERTUSSIS 0.5 ML SYR/VIAL IM ONE (11:45)
[2022-07-08] MEDS ORDERED: MAGNESIUM HYDROXIDE SUSP 30 ML UDC PO PRN (11:45)
--- NOTE | 2022-07-08 11:49 | Post Operative Brief Note ---
Immediate Post Op Note v1 Date of Surgery July 08, 2022 Pre & Post Diagnosis Operation Date: 07/08/22 08:50 Pre-Op Diagnosis: History of myomectomy/repeat c/section Post-Op Diagnosis: Same;Delivery of a live female child at 1039 I identified the patient and participated in the time-out.: Yes Procedure Operation Date: 07/08/22 08:50 Actual Procedures p Section in LD - Antonio Johnston MD Surgeon Antonio Johnston MD Patient Access Specialist Dr. Rocha Estimated Blood Loss 500 Findings Consistent with Post-Op Diagnosis live female Apgars 9/9 weight 6-8 nuchal cord x1 Fluids LR 800 ml. Specimens placenta Drains Quintanilla Catheter Anesthesia Type Spinal Complications none Disposition Accompanied Patient To Recovery: Yes Disposition: L&D Overlapping Procedure I was present for: the critical portions of procedure. I was immediately available: during the entire case. Back up surgeon: was not required during procedure.
--- NOTE | 2022-07-08 12:53 | Operative Report (OR) ---
DATE OF SURGERY: 07/08/2022. POSTOPERATIVE DIAGNOSES: Term elective repeat section, prior myomectomy. POSTOPERATIVE DIAGNOSES: Term elective repeat section, prior myomectomy. PROCEDURE: Repeat section, low segment transverse. SURGEON: Antonio Johnston MD CONTROL ROOM TENDER: Dr. Rocha. ANESTHESIA: Spinal. ESTIMATED BLOOD LOSS: 600 mL. FINDINGS: Live female, Apgars 9 and 9, weight 6 pounds 8 ounces with nuchal cord x1. TOTAL FLUIDS: 800 mL. URINE OUTPUT: 200 mL. CLINICAL HISTORY: The patient is a 36-year-old female, para 2-0-3-2, at 37 weeks and 3 days, admitte d for a repeat section due to prior myomectomy. Timeout was called prior to the start of the procedure and Ancef 2 grams were given preop. DESCRIPTION OF PROCEDURE: Under satisfactory spinal anesthesia, the patient was prepped and draped i n the usual sterile fashion. Timeout was called. Antibiotics given. A low Pfannenstiel incision th rough a prior scar was then made, carrying the incision down into the abdominal cavity in successive layers. Upon entering into the peritoneal cavity, the uterus was noted to be enlarged due to a fibro id on the right. The lower uterine segment was thinned out. A low transverse incision over the lowe r uterine segment was made. The incision was widened in the AP diameter with blunt dissection. The amniotic sac was nicked, was clear. Infant was then delivered with the aid of fundal pressure. Ther e was a nuchal cord x1 reduced at time of delivery of the head. Delayed cord clamping. Delivery of a live female, Apgars were 9 and 9, weight 6 pounds 8 ounces. Cord blood was obtained. Marcos paz delivered spontaneously and intact. Uterus was then exteriorized. Ring forceps were then placed on both angles in the inferior margin. Another ring was used to dilate the cervix. Uterus was closed in double layer closure of 0 Vicryl kendall ture in a continuous interlocking fashion. Several cemxde-ry-dxzxf sutures were used to close some b leeding on the lower uterine segment. The initial sponge, needle, and instrument count were found to be correct. Both tubes and ovaries were found to be within normal limits. The uterus was then plac ed back into the normal anatomical position. Both gutters were inspected and cleaned. The lower [place] rine segment was inspected. No active bleeding was noted. The fascia was then reapproximated with a 0 Vicryl suture in a continuous fashion. Subcuticular space was irrigated. The skin was then reapp roximated with 4-0 Monocryl suture. Steri-Strips were then applied along with a dressing. The final sponge, needle, and instrument count were found to be correct. EBL 600 mL. The patient was placed supine on a stretcher and taken to recovery room in stable condition. Job ID: [id number]
[2022-07-08] MEDS: SIMETHICONE 80 MG CHEW PO SCH ×3 (14:56→21:38)
--- NOTE | 2022-07-08 15:06 | Anesthesiology Progress Note ---
Date of Service July 08, 2022 Anesthesia Post Procedure Vital Signs Vital Signs: Temp Pulse Resp BP Pulse Ox 07/08/22 13:36 18 07/08/22 13:06 18 07/08/22 12:36 18 07/08/22 12:16 18 07/08/22 12:06 18 07/08/22 11:56 18 07/08/22 11:46 18 07/08/22 11:36 36.4 C L 18 07/08/22 14:26 62 100 07/08/22 14:21 60 99 07/08/22 14:16 60 100 07/08/22 14:11 64 100 07/08/22 14:06 100 07/08/22 14:06 63 07/08/22 14:01 100 07/08/22 14:01 69 07/08/22 13:56 100 07/08/22 13:56 69 07/08/22 13:51 100 07/08/22 13:51 62 07/08/22 13:46 90 07/08/22 13:46 69 07/08/22 13:41 100 07/08/22 13:41 62 07/08/22 13:39 89 L 07/08/22 13:39 65 07/08/22 13:36 100 07/08/22 13:36 62 07/08/22 13:37 61 07/08/22 13:37 121/59 L 07/08/22 13:34 90 07/08/22 13:34 71 07/08/22 13:31 99 07/08/22 13:31 70 07/08/22 13:27 63 07/08/22 13:27 111/66 07/08/22 13:26 100 07/08/22 13:26 65 07/08/22 13:21 99 07/08/22 13:21 63 07/08/22 13:16 100 07/08/22 13:16 58 L 07/08/22 13:17 59 L 07/08/22 13:17 129/71 07/08/22 13:13 91 07/08/22 13:13 60 07/08/22 13:11 100 07/08/22 13:11 61 07/08/22 13:08 56 L 07/08/22 13:08 115/56 L 07/08/22 13:06 100 07/08/22 13:06 63 07/08/22 13:01 100 07/08/22 13:01 66 07/08/22 12:59 90 07/08/22 12:59 61 07/08/22 12:56 100 07/08/22 12:56 58 L 07/08/22 12:57 57 L 07/08/22 12:57 120/64 07/08/22 12:51 98 07/08/22 12:51 62 07/08/22 12:50 94 07/08/22 12:50 58 L 07/08/22 12:47 57 L 07/08/22 12:47 128/67 07/08/22 12:46 99 07/08/22 12:46 57 L 07/08/22 12:41 100 07/08/22 12:41 58 L 07/08/22 12:36 97 07/08/22 12:36 55 L 07/08/22 12:37 61 07/08/22 12:37 119/83 07/08/22 12:34 91 07/08/22 12:34 58 L 07/08/22 12:31 99 07/08/22 12:31 58 L 07/08/22 12:28 90 07/08/22 12:28 57 L 07/08/22 12:26 100 07/08/22 12:26 57 L 07/08/22 12:27 57 L 07/08/22 12:27 129/69 07/08/22 12:21 99 07/08/22 12:21 60 07/08/22 12:21 106/65 07/08/22 12:19 92 07/08/22 12:19 60 07/08/22 12:16 100 07/08/22 12:16 61 07/08/22 12:11 100 07/08/22 12:11 61 07/08/22 12:06 99 07/08/22 12:06 60 07/08/22 12:07 56 L 07/08/22 12:07 130/76 07/08/22 12:01 100 07/08/22 12:01 59 L 07/08/22 11:57 66 07/08/22 11:57 115/55 L 07/08/22 11:56 94 07/08/22 11:57 93 07/08/22 11:56 64 07/08/22 11:57 66 07/08/22 11:51 99 07/08/22 11:51 62 07/08/22 11:47 60 07/08/22 11:47 125/66 07/08/22 11:46 100 07/08/22 11:46 59 L 07/08/22 11:41 99 07/08/22 11:41 58 L 07/08/22 11:41 93 07/08/22 11:41 64 07/08/22 11:36 99 07/08/22 11:36 61 07/08/22 11:36 62 07/08/22 11:36 126/65 07/08/22 10:04 92 07/08/22 10:04 125 H 07/08/22 09:00 18 07/08/22 09:00 18 07/08/22 07:18 18 07/08/22 07:18 36.8 C 18 07/08/22 07:20 75 113/72 Pain Intensity Abdomen: Pain Intensity: 3 Transfer of Care Handoff Completed per policy Notes Mental Status: alert / awake / arousable and participated in evaluation Nausea / Vomiting: adequately controlled Pain: adequately controlled Airway Patency, RR, SpO2: stable & adequate BP & HR: stable & adequate Hydration State: stable & adequate Neuraxial Anesthesia: was administered and sensory block is resolving Anesthetic Complications: no major complications apparent and Pt Satisfied with anesthetic care
[2022-07-08] MEDS: KETOROLAC 30 MG/ML VIAL IV PRN (15:27)
[2022-07-08] MEDS ORDERED: NON-FORMULARY MEDICATION (Prenat.Vits,Cal,Min-Iron-Folic Tablet) PO SCH (21:00)
[2022-07-08] MEDS: DOCUSATE SODIUM 100 MG CAP PO SCH (21:38)
[2022-07-09] MEDS: KETOROLAC 30 MG/ML VIAL IV PRN (01:35)
[2022-07-09] MEDS ORDERED: KETOROLAC 30 MG/ML VIAL IV PRN (04:15)
[2022-07-09] MEDS ORDERED: diphenhydrAMINE 50 MG/ML VIAL IV PRN (04:15)
[2022-07-09] MEDS ORDERED: ONDANSETRON INJ 2 MG/ML 2 ML VIAL IV PRN (04:15)
--- NOTE | 2022-07-09 07:51 | Obstetrical Progress Note ---
Date of Service July 09, 2022 Assessment & Plan Admission and Anticipated Discharge Date Admission Date: July 08, 2022 Subjective Patient is seen and examined. She feels well, no complaints. Pain is under control with meds. Ambulated without dizziness Has not Voided yet Tolerating regular diet with out N&V Flatus + BM neg Bleeding is minimal No fever/ chills/ CP/ SOB/ N&V/ Leg pain Breast feeding without problems Vital Signs Temp Pulse Resp BP Pulse Ox O2 Del Method 07/09/22 04:30 20 97 07/09/22 04:30 36.6 C 69 20 128/78 97 Room Air 07/09/22 02:45 20 96 07/09/22 01:45 20 96 07/09/22 00:45 20 96 07/08/22 23:45 20 96 07/08/22 23:45 36.6 C 71 20 126/74 96 Room Air 07/08/22 22:00 16 95 07/08/22 20:15 36.8 C 71 16 117/73 97 Room Air 07/08/22 21:10 16 96 07/08/22 20:00 18 98 Intake & Output 07/08/22 07/09/22 07/09/22 22:59 06:59 14:59 Intake Total 500 / 1500 Output Total 800 / 2150 1050 / 2150 Balance -300 / -650 -1050 / -650 Intake: IV 500 / 1500 Oxytocin 30 units In 500 ml @ 500 / 500 20 UNITS/HR 333.333 mls/hr IV . Q1H30M PRN Rx#:[id number] Output: Urine Amount (Catheter) 800 / 2150 1050 / 2150 [place]/Indwelling 800 / 2150 1050 / 2150 PE: General: Alert, orientedx3, NAD CVS: S1S2 RRR Lungs; CTAB Abd: soft, NT, ND, BS+, fundus firm, below Umbilicus Dressing/ Incision: Clean, dry, intact Perineum intact, Lochia rubra minimal Ext; NT, no edema AP: 36 yo s/p C Section, pod# 1 VSS Afebrile doing well Continue routine postop care Encourage ambulation, PO intake All questions were answered Results & Data ([facility]) Vital Signs (Past 12 Hours) Vital Signs Temp Pulse Resp BP Pulse Ox O2 Del Method 07/09/22 04:30 20 97 07/09/22 04:30 36.6 C 69 20 128/78 97 Room Air 07/09/22 02:45 20 96 07/09/22 01:45 20 96 07/09/22 00:45 20 96 07/08/22 23:45 20 96 07/08/22 23:45 36.6 C 71 20 126/74 96 Room Air 07/08/22 22:00 16 95 07/08/22 20:15 36.8 C 71 16 117/73 97 Room Air 07/08/22 21:10 16 96 07/08/22 20:00 18 98
[2022-07-09] MEDS ORDERED: FERROUS SULFATE 325 MG TAB PO SCH (08:00)
[2022-07-09 08:20] LABS: Acanthocytes 1+; Basophils # (auto) 0.01 K/uL (0-0.2); Basophils % (auto) 0.1 %; Echinocytes 1+; Eosinophils # (auto) 0.07 K/uL (0-0.50); Eosinophils % (auto) 0.8 %; Hematocrit (blood only) 30.9 % (34.1-44.9); Hemoglobin 10.4 g/dl (12.0-16.0); Immature Granulocytes # (auto) 0.01 K/uL (0.00-0.02); Immature Granulocytes % (auto) 0.1 %; Lymphocytes # (auto) 0.95 K/uL (1.2-3.4); Lymphocytes % (auto) 10.8 %; Mean Corpuscular Hemoglobin 27.5 pg (25.0-34.0); Mean Corpuscular Hgb Conc 33.7 g/dL (32.0-36.0); Mean Corpuscular Volume 81.7 fL (80.0-100.0); Mean Platelet Volume 10.3 fL (9.4-12.3); Monocytes % (auto) 9.1 %; Neutrophils # (auto) 6.97 K/uL (1.4-6.5); Neutrophils % (auto) 79.1 %; Platelet Count 138 K/uL (130-400); RDW Coefficient of Variation 15.9 % (11.5-14.5); RDW Standard Deviation 47.1 fL (36.4-46.3); Red Blood Count 3.78 M/uL (3.93-5.22); Tear Drop Cells 1+; White Blood Count 8.81 K/ul (4.8-10.8)
[2022-07-09] MEDS: PRENATAL VITAMIN 1 TAB PO SCH (09:44)
[2022-07-09] MEDS: FERROUS SULFATE 325 MG TAB PO SCH ×2 (09:44→20:05)
[2022-07-09] MEDS: IBUPROFEN 600 MG TAB PO PRN ×3 (09:44→21:29)
[2022-07-09] MEDS: DOCUSATE SODIUM 100 MG CAP PO SCH ×2 (09:44→20:03)
[2022-07-09] MEDS: SIMETHICONE 80 MG CHEW PO SCH ×4 (09:44→20:03)
[2022-07-09] MEDS: oxyCODONE/ACETAMINOPHEN 5mg/325mg TAB PO PRN ×3 (11:38→21:29)
[2022-07-09] MEDS ORDERED: bisacodyL 5 MG TABEC PO SCH (20:00)
[2022-07-10] MEDS: IBUPROFEN 600 MG TAB PO PRN ×5 (02:05→23:12)
[2022-07-10] MEDS: oxyCODONE/ACETAMINOPHEN 5mg/325mg TAB PO PRN ×5 (02:06→23:12)
[2022-07-10 06:56] LABS: Hematocrit (blood only) 29.8 % (34.1-44.9)
[2022-07-10] MEDS: PRENATAL VITAMIN 1 TAB PO SCH (07:38)
[2022-07-10] MEDS: DOCUSATE SODIUM 100 MG CAP PO SCH ×2 (07:38→21:21)
[2022-07-10] MEDS: SIMETHICONE 80 MG CHEW PO SCH ×4 (07:38→21:21)
[2022-07-10] MEDS: FERROUS SULFATE 325 MG TAB PO SCH ×2 (08:00→21:22)
--- NOTE | 2022-07-10 09:57 | Obstetrical Progress Note ---
Date of Service July 10, 2022 Subjective Ambulation: ambulating normally Voiding: no voiding problems Passing Gas:: Yes Diet Tolerance:: regular diet Lochia:: Small Feeding Type:: breast feeding Current Pain Level(1-10): 0 doing well plans for d/c tomorrow Physical Exam Constitutional WD/WN, vitals as above Gastrointestinal (Abdomen) Inspection/Auscultation: abdomen normal to inspection and + abdominal surgical incision incision c/d/i fundus firm below U Musculoskeletal Extremities: extremities normal to inspection Skin no rashes, warm and dry Neurologic patellar DTR's 2+ bilat, sensation intact Psychiatric A+Ox3, euthymic affect Results & Data ([facility]) Vital Signs (Past 12 Hours) Vital Signs Temp Pulse Resp BP 07/09/22 23:45 36.5 C 73 18 116/75 Laboratory Results Laboratory Results - last 72 hr 07/08/22 07/08/22 07/08/22 07:23 07:46 07:46 WBC 4.75 L RBC 3.53 L Hgb 9.8 L Hct 29.3 L MCV 83.0 MCH 27.8 MCHC 33.4 RDW Std Deviation 48.7 H RDW Coeff of Belinda 16.1 H Plt Count 132 MPV 12.0 Immature Gran % (Auto) Neut % (Auto) Lymph % (Auto) [place] % (Auto) Eos % (Auto) Baso % (Auto) Neut # (Auto) Lymph # (Auto) [place] # (Auto) Eos # (Auto) Baso # (Auto) Immature Gran # (Auto) Tear Drop Cells Echinocytes Acanthocytes (Spur) SARS-CoV-2, RNA, NAAT NEGATIVE Blood Type O Positive Antibody Screen NEGATIVE Crossmatch See Detail 07/09/22 07/10/22 07:34 06:38 WBC 8.81 RBC 3.78 L Hgb 10.4 L 10.0 L Hct 30.9 L 29.8 L MCV 81.7 MCH 27.5 MCHC 33.7 RDW Std Deviation 47.1 H RDW Coeff of Belinda 15.9 H Plt Count 138 MPV 10.3 Immature Gran % (Auto) 0.1 Neut % (Auto) 79.1 Lymph % (Auto) 10.8 [place] % (Auto) 9.1 Eos % (Auto) 0.8 Baso % (Auto) 0.1 Neut # (Auto) 6.97 H Lymph # (Auto) 0.95 L [place] # (Auto) 0.80 Eos # (Auto) 0.07 Baso # (Auto) 0.01 Immature Gran # (Auto) 0.01 Tear Drop Cells 1+ Echinocytes 1+ Acanthocytes (Spur) 1+ SARS-CoV-2, RNA, NAAT Blood Type Antibody Screen Crossmatch
[2022-07-10] MEDS ORDERED: bisacodyL 10 MG SUPP PR PRN (11:42)
[2022-07-11] MEDS: IBUPROFEN 600 MG TAB PO PRN (06:00)
[2022-07-11] MEDS: oxyCODONE/ACETAMINOPHEN 5mg/325mg TAB PO PRN (06:00)
[2022-07-11] MEDS: DOCUSATE SODIUM 100 MG CAP PO SCH (08:08)
[2022-07-11] MEDS: PRENATAL VITAMIN 1 TAB PO SCH (08:08)
[2022-07-11] MEDS: FERROUS SULFATE 325 MG TAB PO SCH (08:08)
[2022-07-11] MEDS: SIMETHICONE 80 MG CHEW PO SCH (08:08)
--- NOTE | 2022-07-11 09:24 | Obstetrical Progress Note ---
Date of Service July 11, 2022 Assessment & Plan Admission and Anticipated Discharge Date Admission Date: July 08, 2022 Subjective Patient is seen and examined. She feels well, no complaints. Pain is under control with oral meds. Ambulating without dizzinesss Voiding without difficulty Tolerating regular diet with out N&V Flatus + BM none Bleeding is minimal No fever/ chills/ CP/ SOB/ N&V/ Leg pain Breast feeding without problems Vital Signs Temp Pulse Resp BP Pulse Ox O2 Del Method 07/11/22 09:03 36.7 C 71 16 131/82 96 Room Air 07/11/22 00:00 88 18 128/78 Lab Results 07/08/22 07/08/22 07/08/22 Range/Units 07:23 07:46 07:46 WBC 4.75 L (4.8-10.8) K/ul RBC 3.53 L (3.93-5.22) M/uL Hgb 9.8 L (12.0-16.0) g/dl Hct 29.3 L (34.1-44.9) % MCV 83.0 (80.0-100.0) fL MCH 27.8 (25.0-34.0) pg MCHC 33.4 (32.0-36.0) g/dL RDW Std Deviation 48.7 H (36.4-46.3) fL RDW Coeff of Belinda 16.1 H (11.5-14.5) % Plt Count 132 (130-400) K/uL MPV 12.0 (9.4-12.3) fL Immature Gran % (Auto) % Neut % (Auto) % Lymph % (Auto) % [place] % (Auto) % Eos % (Auto) % Baso % (Auto) % Neut # (Auto) (1.4-6.5) K/uL Lymph # (Auto) (1.2-3.4) K/uL [place] # (Auto) (0.24-0.82) K/uL Eos # (Auto) (0-0.50) K/uL Baso # (Auto) (0-0.2) K/uL Immature Gran # (Auto) (0.00-0.02) K/uL Tear Drop Cells Echinocytes Acanthocytes (Spur) SARS-CoV-2, RNA, NAAT NEGATIVE (NEGATIVE) Blood Type O Positive Antibody Screen NEGATIVE Crossmatch See Detail 07/09/22 07/10/22 Range/Units 07:34 06:38 WBC 8.81 (4.8-10.8) K/ul RBC 3.78 L (3.93-5.22) M/uL Hgb 10.4 L 10.0 L (12.0-16.0) g/dl Hct 30.9 L 29.8 L (34.1-44.9) % MCV 81.7 (80.0-100.0) fL MCH 27.5 (25.0-34.0) pg MCHC 33.7 (32.0-36.0) g/dL RDW Std Deviation 47.1 H (36.4-46.3) fL RDW Coeff of Belinda 15.9 H (11.5-14.5) % Plt Count 138 (130-400) K/uL MPV 10.3 (9.4-12.3) fL Immature Gran % (Auto) 0.1 % Neut % (Auto) 79.1 % Lymph % (Auto) 10.8 % [place] % (Auto) 9.1 % Eos % (Auto) 0.8 % Baso % (Auto) 0.1 % Neut # (Auto) 6.97 H (1.4-6.5) K/uL Lymph # (Auto) 0.95 L (1.2-3.4) K/uL [place] # (Auto) 0.80 (0.24-0.82) K/uL Eos # (Auto) 0.07 (0-0.50) K/uL Baso # (Auto) 0.01 (0-0.2) K/uL Immature Gran # (Auto) 0.01 (0.00-0.02) K/uL Tear Drop Cells 1+ Echinocytes 1+ Acanthocytes (Spur) 1+ SARS-CoV-2, RNA, NAAT (NEGATIVE) Blood Type Antibody Screen Crossmatch PE: General: Alert, orientedx3, NAD CVS: S1S2 RRR Lungs; CTAB Abd: soft, NT, ND, BS+, fundus firm, below Umbilicus Incision: Clean, dry, intact Perineum intact, Lochia rubra minimal Ext; NT, no edema AP: 36 yo s/p C Section, pod# 3 VSS Afebrile doing well Continue routine postop care Encourage ambulation, PO intake All questions were answered D/C home , f/u in office Results & Data ([facility]) Vital Signs (Past 12 Hours) Vital Signs Temp Pulse Resp BP Pulse Ox O2 Del Method 07/11/22 09:03 36.7 C 71 16 131/82 96 Room Air 07/11/22 00:00 88 18 128/78
== END 2022-07-11 13:12 | disposition home or self-care (01) | DRG 788 ==
LOC: 4S1 07:08 → EDSTATUS 08:50 → 4E2 15:00